=== PATIENT | male | born 1975 ===

== ENCOUNTER 2017-08-22 08:35 | Emergency (ER) | payer SELFPAY ==
[2017-08-22 08:42] VITALS: RESP 18
[2017-08-22] MEDS ORDERED: Bacitracin 500 Units/gm Oint Foilpak UD ONE (09:19)
[2017-08-22 11:04] VITALS: BP 122/68; PULSE 80; TEMP 98.2; O2SAT 99
--- NOTE | 2017-08-22 12:59 | C.PDOC ---
History Of Present Illness 41 year old male presents to the ED after sustaining an injury to his left middle finger while sawing wood with a manual saw, not using gloves, bleeding was controlled with pressure. Patient denies numbness, weakness to the injured area. Tetanus immunization not up to date. Chief Complaint (Nursing): Abnormal Skin Integrity History Per: Patient History/Exam Limitations: no limitations Onset/Duration Of Symptoms: Hrs Current Symptoms Are (Timing): Still Present Location Of Injury: Left: Hand (avulsion to left middle finger) Recent travel outside of the [place]: No Past Medical History Reviewed: Historical Data, Nursing Documentation, Vital Signs Vital Signs: Last Vital Signs Temp 98.2 F 08/22/17 11:03 Pulse 80 08/22/17 11:03 Resp 18 08/22/17 11:03 BP 122/68 08/22/17 11:03 Pulse Ox 99 08/22/17 13:13 - Medical History PMH: No Chronic Diseases Surgical History: No Surg Hx Family History: States: Unknown Family Hx - Social History Hx Alcohol Use: No Hx Substance Use: No - Immunization History Hx Tetanus Toxoid Vaccination: No Hx Influenza Vaccination: No Hx Pneumococcal Vaccination: No Review Of Systems Constitutional: Negative for: Weakness Skin: Positive for: Other (Avulsion to left middle finger) Neurological: Negative for: Weakness, Numbness Physical Exam - Physical Exam Appears: Non-toxic, No Acute Distress Skin: Warm, Dry Chest: Symmetrical Cardiovascular: Rhythm Regular Respiratory: Normal Breath Sounds, No Rales, No Rhonchi, No Wheezing Extremity: Normal ROM, No Tenderness, No Deformity, Other (Avulsion of 0.5 cm diameter to palmar aspect of left 3rd digit, no active bleeding.) Pulses: Left Radial: Normal, Right Radial: Normal Neurological/Psych: Oriented x3, Normal Speech, Normal Cognition, Normal Motor, Normal Sensation ED Course And Treatment O2 Sat by Pulse Oximetry: 99 (Room air) Pulse Ox Interpretation: Normal Progress Note: Keflex PO was given for pain management. Avulsion on left middle finger was celaned with bacitrin ointment and bandaged. Patient was instructed to follow up in 2 days for wound treatment. Disposition - Disposition Referrals: [facility] [Outside] [facility] at [facility] [Outside] Disposition: HOME/ ROUTINE Disposition Time: 09:15 Condition: GOOD Additional Instructions: Thank you for letting us take care of you today. Your provider was Dr. Dennis. You were treated for finger avulsion. The emergency medical care you received today was directed at your acute symptoms. If you were prescribed any medication, please fill it and take as directed. It may take several days for your symptoms to resolve. Return to the Emergency Department if your symptoms worsen, do not improve, or if you have any other problems. Please contact your doctor or call one of the physicians/clinics you have been referred to that are listed on the Patient Visit Information form that is included in your discharge packet. Bring any paperwork you were given at discharge with you along with any medications you are taking to your follow up visit. Our treatment cannot replace ongoing medical care by a primary care provider (PCP) outside of the emergency department. Thank you for allowing the [facility] team to be part of your care today. FOLLOW UP IN THE EMERGENCY ROOM IN 2 DAYS FOR A WOUND CHECK. IF YOU SEE REDNESS IN THE FINGER, PLEASE RETURN TO THE EMERGENCY ROOM IMMEDIATELY. Prescriptions: Cephalexin [cephalexin] 500 mg PO Q6 #20 cap Ibuprofen [Motrin] 600 mg PO Q6 PRN #20 tab PRN Reason: Pain, Moderate (4-7) Instructions: Skin Avulsion (ED) Forms: [employer] (Cymro) - Clinical Impression Clinical Impression: Skin avulsion - Scribe Statement The provider has reviewed the documentation as recorded by the Scribe Christoph Dixon All medical record entries made by the Scribe were at my direction and personally dictated by me. I have reviewed the chart and agree that the record accurately reflects my personal performance of the history, physical exam, medical decision making, and the department course for this patient. I have also personally directed, reviewed, and agree with the discharge instructions and disposition.
== END 2017-08-22 11:04 | disposition home or self-care (01) ==
LOC: C.ER 08:35
DX: S61.213A Laceration without foreign body of left middle finger without damage to nail, initial encounter (principal); W45.8XXA Other foreign body or object entering through skin, initial encounter

== ENCOUNTER 2017-08-24 10:53 | Emergency (ER) | payer SELFPAY ==
[2017-08-24 11:04] VITALS: BP 144/96; PULSE 89; RESP 16; TEMP 98.6; O2SAT 95
[2017-08-24] MEDS ORDERED: Bacitracin 500 Units/gm Oint Foilpak UD TOP ONE (11:44)
[2017-08-24] MEDS ORDERED: Bacitracin 500 Units/gm Oint Foilpak UD ONE (11:47)
--- NOTE | 2017-08-24 11:55 | C.PDOC ---
History Of Present Illness 41 year old male presents to the ED for a wound check s/p skin avulsion to his left 3rd finger 2 days ago. Patient denies new complaints, new injury or recent trauma, fever, chills, drainage from the wound. Time Seen by Provider: 08/24/17 11:33 Chief Complaint (Nursing): Wound Check History Per: Patient History/Exam Limitations: no limitations Onset/Duration Of Symptoms: Days Ago Current Symptoms Are (Timing): Better Location Of Injury: Left: Hand (third finger) Quality Of Symptoms: denies: Swollen, Draining Recent travel outside of the [place]: No Additional History Per: Patient Past Medical History Reviewed: Historical Data, Nursing Documentation, Vital Signs Vital Signs: Last Vital Signs Temp 98.6 F 08/24/17 11:02 Pulse 89 08/24/17 11:02 Resp 16 08/24/17 11:02 BP 144/96 H 08/24/17 11:02 Pulse Ox 95 08/24/17 13:49 - Medical History PMH: No Chronic Diseases Surgical History: No Surg Hx Family History: States: Unknown Family Hx - Social History Hx Alcohol Use: No Hx Substance Use: No - Immunization History Hx Tetanus Toxoid Vaccination: No Hx Influenza Vaccination: No Hx Pneumococcal Vaccination: No Review Of Systems Constitutional: Negative for: Fever, Chills Skin: Positive for: Lesions (Left third finger avulsion. no discharge ) Neurological: Negative for: Weakness, Numbness Physical Exam - Physical Exam Appears: Well, No Acute Distress Skin: Normal Color, Warm, Dry, Other (2cm skin avulsion to left 3rd digit. no swelling, discharge, erythema, or signs of infection ) Eye(s): bilateral: Normal Inspection Extremity: Normal ROM, No Tenderness, Capillary Refill (less than 2 seconds), No Deformity, No Swelling Pulses: Left Radial: Normal Neurological/Psych: Oriented x3, Normal Speech, Normal Cognition, Normal Motor, Normal Sensation ED Course And Treatment O2 Sat by Pulse Oximetry: 95 (Room air) Pulse Ox Interpretation: Normal Medical Decision Making Medical Decision Making: Old records reviewed, last seen on 08/22/17 for laceration, found to have skin avulsion no LAC repair necessary. Bacitracin TOP applied to affected area. Patient is stable for discharge. Disposition - Disposition Referrals: [facility] [Outside] Disposition: HOME/ ROUTINE Disposition Time: 11:53 Condition: GOOD Additional Instructions: Keep taking the antibiotics until completed. Follow up with the hand doctor/ clinic within 1-2 days. return if worsened. Prescriptions: Bacitracin Ointment [Bacitracin] 30 gm TOP BID #1 tube Instructions: Acute Wound Care (ED) Forms: [employer] (Georgian) Print Language: YI - Clinical Impression Clinical Impression: Visit for wound care - Scribe Statement The provider has reviewed the documentation as recorded by the Scribevan Dixon All medical record entries made by the Scribe were at my direction and personally dictated by me. I have reviewed the chart and agree that the record accurately reflects my personal performance of the history, physical exam, medical decision making, and the department course for this patient. I have also personally directed, reviewed, and agree with the discharge instructions and disposition.
== END 2017-08-24 12:01 | disposition home or self-care (01) ==
LOC: C.ER 10:53
DX: Z48.00 Encounter for change or removal of nonsurgical wound dressing (principal)